=== PATIENT | female | born 1985 | race Caucasian/White ===

== ENCOUNTER → 2018-04-18 20:16 | Outpatient (REF) | payer BC, SELFPAY ==
[2018-04-20 12:56] LABS: Chlamydia Result Negative; GC Result Negative; Specimen Description URINE
== END ==
LOC: LBN 20:16
DX: Z11.3 Encounter for screening for infections with a predominantly sexual mode of transmission (principal)
CPT/HCPCS: 87491; 87591

== ENCOUNTER 2018-05-24 17:39 | Outpatient (REF) | payer BC, SELFPAY ==
[2018-05-28 14:58] LABS: Chlamydia Result Negative; GC Result Negative; Specimen Description CERVIX
== END 2018-05-24 17:59 ==
LOC: LBN 17:39
PROVIDERS: Visit Provider Nurse Practitioner Women's Health
DX: Z11.3 Encounter for screening for infections with a predominantly sexual mode of transmission (principal)
CPT/HCPCS: 87491; 87591

== ENCOUNTER 2018-09-06 20:40 | Emergency (ER) | payer BC, SELFPAY ==
[2018-09-06 20:43] VITALS: BP 135/54; PULSE 100; RESP 16; TEMP 36.6; O2SAT 100
--- NOTE | 2018-09-06 20:44 | W.ED.GENAD ---
Discharge Plan Disposition Patient Disposition: [facility] Condition: Serious Discharge Details Chief Complaint: Sorethroat Clinical Impression: Abscess, retropharyngeal, Abscess, peritonsillar Primary Care Provider: Dorys Fulton ED Provider: Jeanie Zhang Home Meds and New Rx's Prescriptions: No Action atomoxetine 80 mg capsule 80 mg PO DAILY MDD 80mg Qty: 30 RF: 0 Mirena 20 mcg/24 hr (5 years) intrauterine device 1 insert IY ONCE Qty: 1 RF: 0 ibuprofen 200 mg capsule 600 mg PO BID PRNRF: 0 penicillin V potassium 500 mg tablet 500 mg PO BID 10 Days Qty: 20 RF: 0 ibuprofen 600 mg tablet 600 mg PO TID PRN (Reason: pain) Qty: 30 RF: 4 mupirocin 22 GM ointment 1 gm Topical TID Qty: 1 RF: 0 magnesium oxide 400 MG capsule 1 cap PO DAILY RF: 0 Vitamin B12 1,000 mcg PO DAILY RF: 0 CBD CAPSULE 1 cap PO PRN RF: 0 trazodone 50 mg tablet 50 mg PO HS Qty: 30 RF: 1 bupropion HCl [Wellbutrin XL] 150 mg Tablet Extended Release 24 Hr 75 mg PO Q OTHER DAY RF: 0 Discharge Data Discharge Date/Time-TO BE ENTERED AT DEPARTURE: 09/06/18 23:46 Medical Decision Making Patient is a 32 year old female presenting today with c/c of sore throat and left sided swelling. She reports that she started having sore throat last weekened, was seen by PCP 2 days ago at which time she was diagnosed with pharyngitis and begun on penicillin. She reports is been taking the medication as prescribed. Despite this, she has noted increased pain, swelling particularly on the left side. She feels that the swelling goes down to the left lateral side of her neck. Has not noted any fevers. Is having difficulty handling secretions. States that she tries to drink fluids she is able to get a small amount down but overall much of this is coming back. 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 Patient also has history of anxiety, depression. On exam, patient has hot potato voice. Trismus is noted and patient has a very small posterior oropharynx and left tonsil. White exudate is noted overlying her erythematous posterior oropharynx. She has palpable cervical and anterior lymphadenopathy. She is afebrile. Tachycardic at 100. Patient appears to have peritonsillar abscess. Will give Dexamethasone, IV antibiotics, hydrate the patient and obtain CT to evaluate abscess further. Reviewed images, concerned for possible retropharyngeal abscess. Have pushed images to [facility] [place], awaiting radiology read. CT reviewed by radiologist: FINDINGS: Sinuses: Fluid level likely mucus in right piriform sinus. Oropharynx: Enlarged tonsils bilaterally. Large left superior/inferior peritonsillar abscess collection measuring 1.8 x 2.5 x 2.8 cm. There is an extension of the fracture is posterior medially to a second large abscess in posterior-lateral submucosal space in oropharynx measuring 1.9 x 1.8 cm in axial dimension and 3.0 cm in craniocaudal dimension. Larynx: Normal. Normal epiglottis. Retropharyngeal space: Moderate size retropharyngeal abscess collection measuring 4.8 x 1.3 cm in axial dimension and 4.9 cm in craniocaudal dimension. Submandibular/Parotid glands: Normal. Glands are normal in size. Thyroid: Normal. No enlarged or calcified nodules. Lymph nodes: Mildly prominent lymph nodes likely reactive. Lung apices: Normal as visualized. Vasculature: No acute findings. Bones/joints: Normal. No acute fracture. Soft tissues: Normal. No significant soft tissue swelling. IMPRESSION: 1. Large left superior/inferior peritonsillar abscess collection measuring 1.8 x 2.5 x 2.8 cm. 2. There is an extension of the fracture is posterior medially to a second large abscess in posteriorlateral submucosal space in oropharynx measuring 1.9 x 1.8 cm in axial dimension and 3.0 cm in craniocaudal dimension. 3. Moderate size retropharyngeal abscess collection measuring 4.8 x 1.3 cm in axial dimension and 4.9 cm in craniocaudal dimension. 4. Fluid level likely mucus in right piriform sinus. Contacted [facility] [place] transfer center, have requested ENT consult. Discussed this with the patient. She reports she sees ENT at [facility] [place] for her spasmodic dysphonia. Spoke with Dr. Purvis with ENT. She advised that the extensive abscess the patient has is not appropriate for bedside drainage, advised that she would likely scope the patient with possible OR drainage. Is concerned that even with drainage tonight she may need to stay observation over night, unclear as to their bed status. She advised continuing with the IV Dex Q8 hours, IV Clinda or Unasyn Q6. Advised suction with greg for the patient for her secretions. If patient has difficulty with airway advised cool mist and nebulized epi. She is going to speak with her attending regarding bed availability, will call back with options. Bed is available. She accepts patient in transfer. Patient will go to the ED, spoke with ED physician as well. Patient will be transported via EMS to [facility] [place] for definitive care of her abscesses. Discussed this plan with the patient who is in agreement. HPI General Mode of arrival: ambulatory. Date/Time Provider Initiated Documentation: 09/06/18 20:42. Limitations to Documentation: no limitations. Information obtained by: patient. History of Present Illness 32 year old F presents to the emergency department with the chief complaint of sore throat, described as moderate, with intensity rated at 6. Quality is described as aching, and is localized to the neck (throat and left side of neck). Patient reports no radiation. Patient started experiencing this day(s) and it has been constant. No relieving factors improve symptom(s), No exacerbating factors reported . Patient notes loss of appetite; denies chest pain, cough, fever/chills, headaches, nausea/vomiting, rash and shortness of breath. Patient did receive the following treatments prior to arrival, other (has been on Penicillin x 2 days) Related Data Home Medications Medication Instructions Recorded Confirmed mupirocin 1 gm TOPICAL TID #1 tube 09/14/16 09/06/18 Vitamin B12 1,000 mcg PO DAILY 03/20/18 09/06/18 magnesium oxide 1 cap PO DAILY 03/20/18 09/06/18 Cbd Capsule 1 cap PO PRN 04/09/18 09/06/18 levonorgestrel 20 mcg/24 hr (5 1 insert IY ONCE #1 each 05/24/18 09/06/18 years) intrauterine device trazodone 50 mg tablet 50 mg PO HS #30 tab 07/23/18 09/06/18 atomoxetine 80 mg capsule 80 mg PO DAILY #30 cap MDD 80mg 08/23/18 09/06/18 ibuprofen 200 mg capsule 600 mg PO BID PRN cap 09/04/18 09/06/18 ibuprofen 600 mg tablet 600 mg PO TID PRN #30 tab 09/04/18 09/06/18 penicillin V potassium 500 mg 500 mg PO BID 10 Days #20 tab 09/04/18 09/06/18 tablet bupropion HCl [Wellbutrin XL] 75 mg PO Q OTHER DAY 09/06/18 09/06/18 Previous Rx's Medication Instructions Recorded levonorgestrel 20 mcg/24 hr (5 1 insert IY ONCE #1 each 05/24/18 years) intrauterine device trazodone 50 mg tablet 50 mg PO HS #30 tab 07/23/18 atomoxetine 80 mg capsule 80 mg PO DAILY #30 cap MDD 80mg 08/23/18 ibuprofen 600 mg tablet 600 mg PO TID PRN #30 tab 09/04/18 penicillin V potassium 500 mg 500 mg PO BID 10 Days #20 tab 09/04/18 tablet Allergies Allergy/AdvReac Type Severity Reaction Status Date / Time No Known Allergies Allergy Verified 09/06/18 21:57 Review of Systems Constitutional Reports as per HPI and Denies headache(s) Eyes Reports as per HPI, Denies eye discharge and Denies irritation ENT Reports as per HPI, Denies headache(s), Denies mouth pain, Denies nasal congestion, Denies nasal discharge, Reports neck pain, Reports sore throat, Reports throat swelling and Reports tongue swelling Cardiovascular Reports as per HPI, Denies chest pain and Denies dyspnea Respiratory Reports as per HPI, Reports cough (associates with difficulty handling secretions) and Denies dyspnea Gastrointestinal Reports as per HPI, Denies abdominal pain, Denies change in bowel habits, Denies nausea and Denies vomiting Musculoskeletal Reports neck pain Integumentary/Breasts Reports as per HPI and Denies rash Neurologic Denies headache(s) Allergic/Immunologic Reports throat swelling and Reports tongue swelling [facility] Medical History Anxiety (Chronic 08/17/17) ADHD Anxiety Depression High 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 Social History number of children: 0 frequency: 3-4 times per week duration: 45-60 minutes/day Smoking/Tobacco Use Status: Never alcohol intake: current alcohol intake frequency: a few times a month substance use type: does not use special obed needs: No seatbelt use: always Female Reproductive History Menstrual control method: progestin IUCD History History 0 Para Hx # Term Pregnancies Multiple births Hx # Pregnancies Ectopic pregnancies AB induced Hx Number of Living Children AB spontaneous Exam Const General: cooperative, healthy appearing, comfortable, no acute distress, well developed and well groomed Nutritional Appearance: average body habitus and well nourished Orientation: alert and awake HENMT Head: normal to inspection, normocephalic and atraumatic Ears: hearing grossly normal bilaterally, external ears normal and TM's normal bilaterally General nose exam: external nose normal and nares normal Face and sinus: normal facial exam, sinuses nontender and face symmetric Mouth: oral mucosae normal, lip normal, tongue normal, moist mucous membranes, audible dysphonia, muffled voice, trismus and restricted motion Teeth and gingiva: dentition normal Throat: abnormal tonsil on the left erythema, exudates and hypertrophy, peritonsillar mass on the left tender, uvula laterally displaced to the right and no uvular edema Eyes General: appearance normal, both eyes and all related structures Neck Neck: normal visual inspection, full ROM, lymphadenopathy noted, no meningeal signs and no tracheal deviation Resp Effort & Inspection: normal respiratory effort, able to speak in complete sentences and no respiratory distress Auscultation: clear to auscultation bilaterally, no rales, no rhonchi and no wheezes Cardio Rate: regular rate Rhythm: regular rhythm Heart Sounds: S1 normal and S2 normal Skin General skin exam: no rashes or lesions noted Neuro General: alert and awake Cognition: normal cognition Speech: speech normal Gait: normal gait Psych Appearance: grossly normal and well kempt Mental Status: mental status grossly normal Speech and Movement: speech and movement normal
--- NOTE | 2018-09-06 20:55 | DI.CT_ITS ---
SYMPTOM/DIAGNOSIS: LT PERITONSILLAR ABSCESS NECK CT: CT scan of the neck was performed following the uneventful administration of intravenous contrast material. There is enlargement of the left tonsils. There is a fluid collection in the left tonsillar region measuring 2.4 cm. AP by 1/9 cm. transverse by 1.9 cm. craniocaudally. There is extension of the fluid collection seen posteriorly and medially extending toward the retropharyngeal space. This portion of the collection measures 1.8 cm. AP by 2 cm. transverse by 4.4 cm. craniocaudally. There is edema seen in the soft tissues in the peritonsillar region extending inferiorly to the region of the left puriform sinus. There is narrowing of the airway in the transverse diameter due to the left peritonsillar swelling. There is a small fluid level seen in the right puriform sinus which may reflect mucus. The parotid and submandibular glands are unremarkable. There do appear to be enlarged lymph nodes in the left neck measuring up to 1.2 cm. in short axis. These mainly lie at the angle of the left mandible. The thyroid gland is grossly unremarkable. The lung apices appear clear. The visualized paranasal sinuses are clear. No fluid levels are seen. The visualized mastoid air cells are well pneumatized. There is reversal of the normal cervical lordosis. The bones appear intact and normally mineralized in the cervical spine. IMPRESSION: 1. Enlarged left tonsillar region with large peritonsillar abscess which extends from the tonsillar region inferiorly and medially. The two largest collections which appear to communicate are noted with the largest measuring up to 4.4 cm. in length and the smaller collection measuring 2.4 cm. in maximum diameter. 2. Small amount of fluid in the right puriform sinus which may reflect mucus.
[2018-09-06] MEDS: Dexamethasone 10 MG/ML VIAL IVP (21:08)
[2018-09-06] MEDS: Normal Saline 1,000 ML 1000 ML IV (21:08)
[2018-09-06] MEDS: CLINDAMYCIN 900 MG/50 ML BAG 100 MG IVPB (21:09)
[2018-09-06 21:21] LABS: Abs Immature Grans 0.04 k/cumm (0.0-0.09); Absolute Basophil Count 0.02 k/cumm (0.0-0.2); Absolute Eosinophil Count 0.14 k/cumm (0.0-0.7); Absolute Lymphocyte Count 2.75 k/cumm (1.2-3.4); Absolute Monocyte Count 1.22 k/cumm (0.11-0.7); Absolute Neutrophil Count 11.44 k/cumm (1.2-6.7); Basophils % 0.1; Eosinophils % 0.9; HCT 37.9 % (36.0-46.0); HGB 12.7 g/dL (12.0-15.5); Immature Grans % 0.3; Lymphocytes % 17.6; Mean Corp. HGB Concentration 33.5 g/dL (32.0-36.0); Mean Corpuscular Hemoglobin 31.8 pg (27.0-33.0); Mean Platelet Volume 10.2 fL (8.0-11.0); Monocytes % 7.8; Neutrophils % 73.3; Platelet Count 283 x1000/uL (130-400); RBC 3.99 m/cumm (4.00-5.20); RBC Distribution Width 12.7 % (11.7-14.6); White Blood Cell Count 15.61 k/cumm (4.4-10.8)
[2018-09-06] MEDS: Omnipaque 350 MG/ML 100 ML BTL IJ (21:32)
[2018-09-06 21:39] LABS: ALT 25 U/L (12-78); AST 17 U/L (15-37); Albumin 3.6 g/dL (3.4-5.0); Alkaline Phosphatase 75 U/L (46-116); Anion Gap 9.7 mmol/L (3-11); BUN 6 mg/dL (7-18); Bilirubin, Total 0.4 mg/dL (0.2-1.0); CO2 29.3 mmol/L (21.0-32.0); CREATININE 0.83 mg/dL (0.55-1.02); Calcium 9.3 mg/dL (8.5-10.1); Chloride 101 mmol/L (98-107); Glucose 90 mg/dL (70-100); Potassium 3.4 mmol/L (3.5-5.1); Sodium 140 mmol/L (136-145); Total Protein 8.4 g/dL (6.4-8.2)
[2018-09-06 21:40] VITALS: BP 121/69; PULSE 90; RESP 16; TEMP 37.1; O2SAT 100
--- NOTE | 2018-09-06 21:58 | ED.GENADUL_ITS ---
Discharge Plan Disposition Patient Disposition: [facility] Condition: Serious Discharge Details Chief Complaint: Sorethroat Clinical Impression: Abscess, retropharyngeal, Abscess, peritonsillar Primary Care Provider: Dorys Fulton ED Provider: Jeanie Zhang Home Meds and New Rx's Prescriptions: No Action atomoxetine 80 mg capsule 80 mg PO DAILY MDD 80mg Qty: 30 RF: 0 Mirena 20 mcg/24 hr (5 years) intrauterine device 1 insert IY ONCE Qty: 1 RF: 0 ibuprofen 200 mg capsule 600 mg PO BID PRNRF: 0 penicillin V potassium 500 mg tablet 500 mg PO BID 10 Days Qty: 20 RF: 0 ibuprofen 600 mg tablet 600 mg PO TID PRN (Reason: pain) Qty: 30 RF: 4 mupirocin 22 GM ointment 1 gm Topical TID Qty: 1 RF: 0 magnesium oxide 400 MG capsule 1 cap PO DAILY RF: 0 Vitamin B12 1,000 mcg PO DAILY RF: 0 CBD CAPSULE 1 cap PO PRN RF: 0 trazodone 50 mg tablet 50 mg PO HS Qty: 30 RF: 1 bupropion HCl [Wellbutrin XL] 150 mg Tablet Extended Release 24 Hr 75 mg PO Q OTHER DAY RF: 0 Discharge Data Discharge Date/Time-TO BE ENTERED AT DEPARTURE: 09/06/18 23:46 Medical Decision Making Patient is a 32 year old female presenting today with c/c of sore throat and left sided swelling. She reports that she started having sore throat last weekened, was seen by PCP 2 days ago at which time she was diagnosed with pharyngitis and begun on penicillin. She reports is been taking the medication as prescribed. Despite this, she has noted increased pain, swelling particularly on the left side. She feels that the swelling goes down to the lef t lateral side of her neck. Has not noted any fevers. Is having difficulty handling secretions. States that she tries to drink fluids she is able to get a small amount down but overall much of this is coming back. 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 Patient also has history of anxiety, depression. On exam, patient has hot potato voice. Trismus is noted and patient has a very small posterior oropharynx and left tonsil. White exudate is noted overlying her erythematous posterior oropharynx. She has palpable cervical and anterior lymphadenopathy. She is afebrile. Tachycardic at 100. Patient appears to have peritonsillar abscess. Will give Dexamethasone, IV antibiotics, hydrate the patient and obtain CT to evaluate abscess further. Reviewed images, concerned for possible retropharyngeal abscess. [place] [facility] [place] read. CT reviewed by radiologist: FINDINGS: Sinuses: Fluid level likely mucus in right piriform sinus. Oropharynx: Enlarged tonsils bilaterally. Large left superior/inferior peritonsillar abscess collection measuring 1.8 x 2.5 x 2.8 cm. There is an extension of the fracture is posterior medially to a second large abscess in posterior-lateral submucosal space in oropharynx measuring 1.9 x 1.8 cm in axial dimension and 3.0 cm in craniocaudal dimension. Larynx: Normal. Normal epiglottis. Retropharyngeal space: Moderate size retropharyngeal abscess collection measuring 4.8 x 1.3 cm in axial dimension and 4.9 cm in craniocaudal dimension. Submandibular/Parotid glands: Normal. Glands are normal in size. Thyroid: Normal. No enlarged or calcified nodules. Lymph nodes: Mildly prominent lymph nodes likely reactive. Lung apices: Normal as visualized. Vasculature: No acute findings. Bones/joints: Normal. No acute fracture. Soft tissues: Normal. No significant soft tissue swelling. IMPRESSION: 1. Large left superior/inferior peritonsillar abscess collection measuring 1.8 x 2.5 x 2.8 cm. 2. There is an extension of the fracture is posterior medially to a second large abscess in posteriorlateral submucosal space in oropharynx measuring 1.9 x 1.8 cm in axial dimension and 3.0 cm in craniocaudal dimension. 3. Moderate size retropharyngeal abscess collection measuring 4.8 x 1.3 cm in axial dimension and 4.9 cm in craniocaudal dimension. 4. Fluid level likely mucus in right piriform sinus. [place] [facility] [place] have requested ENT consult. Discussed this with the patient. She reports she sees ENT [place] [facility] [place] dysph[place]. Spoke with Dr. Purvis with ENT. She advised that the extensive abscess the patient has is not appropriate for bedside drainage, advised that she would likely scope the patient with possible OR drainage. Is concerned that even with drainage tonight she may need to stay observation over night, unclear as to their bed status. She advised continuing with the IV Dex Q8 hours, IV Clinda or Unasyn Q6. Advised suction with greg for the patient for her secretions. If patient has difficulty with airway advised cool mist and nebulized epi. She is going to speak with her attending regarding bed availability, will call back with options. Bed is available. She accepts patient in transfer. Patient will go to the ED, spoke with ED physician as well. Patient will be transported via EMS [place] [facility] [place] of her [place]es. Discussed this plan with the patient who is in agreement. HPI General Mode of arrival: ambulatory . Date/Time Provider Initiated Documentation: 09/06/18 20:42 . Limitations to Documentation: no limitations . Information obtained by: patient . History of Present Illness 32 year old F presents to the emergency department with the chief complaint of sore throat, described as moderate, with intensity rated at 6. Quality is described as aching, and is localized to the neck (throat and left side of neck). Patient reports no radiation. Patient started experiencing this day(s) and it has been constant. No relieving factors improve symptom(s), No exacerbating factors reported . Patient notes loss of appetite; denies chest pain, cough, f ever/chills, headaches, nausea/vomiting, rash and shortness of breath. Patient did receive the following treatments prior to arrival, other (has been on Penicillin x 2 days) Related Data Home Medications Medication Instructions Recorded Confirmed mupirocin 1 gm TOPICAL TID #1 tube 09/14/16 09/06/18 Vitamin B12 1,000 mcg PO DAILY 03/20/18 09/06/18 magnesium oxide 1 cap PO DAILY 03/20/18 09/06/18 Cbd Capsule 1 cap PO PRN 04/09/18 09/06/18 levonorgestrel 20 mcg/24 hr (5 1 insert IY ONCE #1 each 05/24/18 09/06/18 years) intrauterine device trazodone 50 mg tablet 50 mg PO HS #30 tab 07/23/18 09/06/18 atomoxetine 80 mg capsule 80 mg PO DAILY #30 cap MDD 80mg 08/23/18 09/06/18 ibuprofen 200 mg capsule 600 mg PO BID PRN cap 09/04/18 09/06/18 ibuprofen 600 mg tablet 600 mg PO TID PRN #30 tab 09/04/18 09/06/18 penicillin V potassium 500 mg 500 mg PO BID 10 Days #20 tab 09/04/18 09/06/18 tablet bupropion HCl [Wellbutrin XL] 75 mg PO Q OTHER DAY 09/06/18 09/06/18 Previous Rx's Medication Instructions Recorded levonorgestrel 20 mcg/24 hr (5 1 insert IY ONCE #1 each 05/24/18 years) intrauterine device trazodone 50 mg tablet 50 mg PO HS #30 tab 07/23/18 atomoxetine 80 mg capsule 80 mg PO DAILY #30 cap MDD 80mg 08/23/18 ibuprofen 600 mg tablet 600 mg PO TID PRN #30 tab 09/04/18 penicillin V potassium 500 mg 500 mg PO BID 10 Days #20 tab 09/04/18 tablet Allergies Allergy/AdvReac Type Severity Reaction Status Date / Time No Known Allergies Allergy Verified 09/06/18 21:57 Review of Systems Constitutional Reports as per HPI and Denies headache(s) Eyes Reports as per HPI, Denies eye discharge and Denies irritation ENT Reports as per HPI, Denies headache(s), Denies mouth pain, Denies nasal congestion, Denies nasal discharge, Reports neck pain, Reports sore throat, Reports throat swelling and Reports tongue swelling Cardiovascular Reports as per HPI, Denies chest pain and Denies dyspnea Respiratory Reports as per HPI, Reports cough (associates with difficulty handling secretions) and Denies dyspnea Gastrointestinal Reports as per HPI, Denies abdominal pain, Denies change in bowel habits, Denies nausea and Denies vomiting Musculoskeletal Reports neck pain Integumentary/Breasts Reports as per HPI and Denies rash Neurologic Denies headache(s) Allergic/Immunologic Reports throat swelling and Reports tongue swelling [facility] Medical History Anxiety (Chronic 08/17/17) ADHD Anxiety Depression High 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 Social History number of children: 0 frequency: 3-4 times per week duration: 45-60 minutes/day Smoking/Tobacco Use Status: Never alcohol intake: current alcohol intake frequency: a few times a month substance use type: does not use special obed needs: No seatbelt use: always Female Reproductive History Menstrual control method: progestin IUCD History History 0 Para Hx # Term Pregnancies Multiple births Hx # Pregnancies Ectopic pregnancies AB induced Hx Number of Living Children AB spontaneous Exam Const General: cooperative, healthy appearing, comfortable, no acute distress, well developed and well groomed Nutritional Appearance: average body habitus and well nourished Orientation: alert and awake HENMT Head: normal to inspection, normocephalic and atraumatic Ears: hearing grossly normal bilaterally, external ears normal and TM's normal bilaterally General nose exam: external nose normal and nares normal Face and sinus: normal facial exam, sinuses nontender and face symmetric Mouth: oral mucosae normal, lip normal, tongue normal, moist mucous membranes, audible dysphonia, muffled voice, trismus and restricted motion Teeth and gingiva: dentition normal Throat: abnormal tonsil on the left erythema, exudates and hypertrophy, peritonsillar mass on the left tender, uvula laterally displaced to the right and no uvular edema Eyes General: appearance normal, both eyes and all related structures Neck Neck: normal visual inspection, full ROM, lymphadenopathy noted, no meningeal signs and no tracheal deviation Resp Effort & Inspection: normal respiratory effort, able to speak in complete sentences and no respiratory distress Auscultation: clear to auscultation bilaterally, no rales, no rhonchi and no wheezes Cardio Rate: regular rate Rhythm: regular rhythm Heart Sounds: S1 normal and S2 normal Skin General skin exam: no rashes or lesions noted Neuro General: alert and awake Cognition: normal cognition Speech: speech normal Gait: normal gait Psych Appearance: grossly normal and well kempt Mental Status: mental status grossly normal Speech and Movement: speech and movement normal
--- NOTE | 2018-09-06 22:04 | DI.VRAD_ITS ---
EXAM: CT Neck With Contrast EXAM DATE/TIME: 09/06/2018 8:58 PM CLINICAL HISTORY: 32 years old, female; Pain; Other: Left peritonsillar abscess TECHNIQUE: Axial computed tomography images of the neck with intravenous contrast. Coronal and sagittal reformatted images were created and reviewed. CONTRAST: 100 ml of omni 350 administered intravenously. COMPARISON: No relevant prior studies available. FINDINGS: Sinuses: Fluid level likely mucus in right piriform sinus. Oropharynx: Enlarged tonsils bilaterally. Large left superior/inferior peritonsillar abscess collection measuring 1.8 x 2.5 x 2.8 cm. There is an extension of the fracture is posterior medially to a second large abscess in posterior-lateral submucosal space in oropharynx measuring 1.9 x 1.8 cm in axial dimension and 3.0 cm in craniocaudal dimension. Larynx: Normal. Normal epiglottis. Retropharyngeal space: Moderate size retropharyngeal abscess collection measuring 4.8 x 1.3 cm in axial dimension and 4.9 cm in craniocaudal dimension. Submandibular/Parotid glands: Normal. Glands are normal in size. Thyroid: Normal. No enlarged or calcified nodules. Lymph nodes: Mildly prominent lymph nodes likely reactive. Lung apices: Normal as visualized. Vasculature: No acute findings. Bones/joints: Normal. No acute fracture. Soft tissues: Normal. No significant soft tissue swelling. IMPRESSION: 1. Large left superior/inferior peritonsillar abscess collection measuring 1.8 x 2.5 x 2.8 cm. 2. There is an extension of the fracture is posterior medially to a second large abscess in posterior-lateral submucosal space in oropharynx measuring 1.9 x 1.8 cm in axial dimension and 3.0 cm in craniocaudal dimension. 3. Moderate size retropharyngeal abscess collection measuring 4.8 x 1.3 cm in axial dimension and 4.9 cm in craniocaudal dimension. 4. Fluid level likely mucus in right piriform sinus. Dictated and Authenticated by: Raciel Baca MD. Ordering:PRETTY Ware MD
[2018-09-06 23:45] VITALS: BP 128/75; PULSE 90; RESP 16; TEMP 37; O2SAT 99
== END 2018-09-06 23:46 | disposition short-term general hospital (02) ==
LOC: ER 21:03
PROVIDERS: Emergency Provider Physician Assistant
DX: J36 Peritonsillar abscess (principal); J39.1 Other abscess of pharynx; J39.0 Retropharyngeal and parapharyngeal abscess
CPT/HCPCS: 36415; 70491; 80053; 81025; 96361; 96365; 96375; 99284; 85025; J1100; J3490

== ENCOUNTER 2019-02-27 12:12 | Outpatient (REF) | payer BC, SELFPAY ==
--- NOTE | 2019-02-27 11:45 | PAPFT_PTH ---
PATIENT: JERE NATHAN LOC: [facility] U#:[id number] AGE/SX: 33/F ROOM: RE02/27/[address]: Darlene Bonner NP : 1985 BED: DIS: 02/27/2019 SPEC #: [id number] RECD: 02/27/19 12:59 STATUS: BERNARDINO RE[place] #: [id number] MONISHA: 02/27/19 11:[address]: Darlene Bonner NP DEPT: [facility] Cytology RECD BY: Dea Vinson ENTERED: 02/27/19 12:59 SP TYPE: PAPFT OT DR: Dorys Fulton, VINAY Tissues: 1 - CX/ENDOCX FOR PAP SMEARS Procedures: PAP THIN PREP/[facility] Screening HPV DNA PROBE Comments: [id number]
== END 2019-02-27 12:32 ==
LOC: LBN 12:12
PROVIDERS: Visit Provider Nurse Practitioner Women's Health
DX: Z12.4 Encounter for screening for malignant neoplasm of cervix (principal); Z11.51 Encounter for screening for human papillomavirus (HPV)
CPT/HCPCS: 88142; 87624

== ENCOUNTER 2019-03-14 09:52 | Outpatient (REF) | payer BC, SELFPAY ==
--- NOTE | 2019-03-14 09:00 | CER_PTH ---
PATIENT: JERE NATHAN LOC: [facility] U#:[id number] AGE/SX: 33/F ROOM: RE03/14/[address]: Flori Salazar MD : 1985 BED: DIS: 03/14/2019 SPEC #: [id number] RECD: 03/14/19 12:46 STATUS: BERNARDINO REQu[place] #: [id number] MONISHA: 03/14/19 09:[address]: Flori Salazar DEPT: Surgical Specimen RECD BY: Dea Vinson ENTERED: 03/14/19 12:47 SP TYPE: CER OTHR DR: Dorys Fulton APRN Tissues: 1 - CERVICAL BIOPSY 2 - CERVICAL BIOPSY 3 - ENDOCERVICAL BX/CURRETTE Procedures: GROSS AND MICRO LEVEL 4 Comments: [id number]
== END 2019-03-14 10:12 ==
LOC: LBN 09:52
PROVIDERS: Visit Provider Obstetrics & Gynecology
DX: N88.8 Other specified noninflammatory disorders of cervix uteri (principal); Z87.42 Personal history of other diseases of the female genital tract
CPT/HCPCS: 88305

== ENCOUNTER 2020-05-20 16:32 | Outpatient (REF) | payer BC, SELFPAY ==
--- NOTE | 2020-05-20 15:40 | PAPFT_PTH ---
PATIENT: JERE NATHAN LOC: N U#:[id number] AGE/SX: 34/F ROOM: RE05/20/[address]: Ami Hanson DO : 1985 BED: DIS: 05/20/2020 SPEC #: [id number] RECD: 05/20/20 17:31 STATUS: BERNARDINO REQ #: [id number] MONISHA: 05/20/20 15:[address]: Ami Hanson DEPT: [facility] Cytology RECD BY: Dea Vinson ENTERED: 05/20/20 17:31 SP TYPE: PAPFT OTHR DR: Dorys Fulton APRN Tissues: 1 - CX/ENDOCX FOR PAP SMEARS Procedures: PAP THIN PREP/[facility] Screening HPV DNA PROBE Comments: [id number]
== END 2020-05-20 16:52 ==
LOC: LBN 16:32
PROVIDERS: Visit Provider Obstetrics & Gynecology
DX: Z12.4 Encounter for screening for malignant neoplasm of cervix (principal); Z11.51 Encounter for screening for human papillomavirus (HPV); Z87.42 Personal history of other diseases of the female genital tract; Z97.5 Presence of (intrauterine) contraceptive device
CPT/HCPCS: 88142; 87624